=== PATIENT | female | born 1965 | race African-American/Black ===

== ENCOUNTER → 2016-04-01 | Outpatient (CLI) | payer BC ==
[2015-07-07 19:16] VITALS: BP 136/78
[~2016-04-01] MED LIST: GABA-586 PO; HYDR200T PO; LOSA1TAB12 PO; METF500T4 PO; NAPR500T3 PO; TRAM50TA PO
--- NOTE | 2016-04-01 10:01 | KCIC ---
Examination: MRI of the left knee without contrast. HISTORY History of left posterior knee pain. COMPARISON None TECHNIQUE Multiplanar, multisequence MR imaging of the left knee was performed without contrast FINDINGS The anterior cruciate ligament, posterior cruciate ligament appear intact. There is mild increased horizontal signal identified in the medial meniscus likely degeneration. The lateral meniscus appears intact. The medial collateral ligament is intact. The lateral collateral ligamentous complex including the fibular collateral ligament, biceps femoris tendon, popliteus tendon appear intact. The distal attachment of the iliotibial band appears intact. Moderate knee joint effusion is identified. The medial retinaculum, lateral retinaculum appear intact. Small subchondral cysts identified in the posterior tibia with surrounding trabecular edema likely degeneration. There is near complete cartilage loss identified in the patellofemoral compartment with underlying multiple subchondral cystic changes identified in the patella likely secondary to degeneration. There is fraying of cartilage identified medial, lateral compartments. Tiny popliteal cyst is identified. Minimal amount of edema identified surrounding the knee joint within the soft tissue. The visualized neurovascular bundle grossly appears unremarkable. Moderate joint space loss identified in the patellofemoral compartment. The extensor mechanism is intact. There is moderate joint space loss identified in the medial compartment. Mild joint space loss identified in lateral compartment. IMPRESSION - Moderate to severe degenerative changes identified in the patellofemoral compartment with multiple subchondral cystic changes the patella. There is near complete cartilage loss identified in the patella. Grade 3 chondromalacia patella. - Moderate degenerative changes identified in the medial compartment. Mild mild degenerative changes identified in the lateral compartment. Small subchondral cysts identified in the posterior tibia with surrounding trabecular edema likely degeneration. - Moderate knee joint effusion. Tiny popliteal cyst. - Mild increased horizontal signal identified in the medial meniscus likely due to degeneration. Electronically signed by: Donnie Cook (Apr 01, 2016 09:59:22)
== END | disposition home or self-care (01) ==
LOC: KCIC MRI 08:34
PROVIDERS: ATTEND Nurse Practitioner Gerontology
DX: M25.562 Pain in left knee (principal); M25.461 Effusion, right knee; M22.42 Chondromalacia patellae, left knee
CPT/HCPCS: 73721

== ENCOUNTER → 2016-05-13 | Outpatient (CLI) | payer BC ==
[2015-07-07 19:16] VITALS: BP 136/78
--- NOTE | 2016-05-13 15:42 | KCIC ---
Bilateral digital screening mammograms with CAD: HISTORY Routine screening. COMPARISON Comparison is made to previous studies dated 05/06/2015, 04/25/2015 and 04/21/2015. FINDINGS Breast density category A. The skin and nipples show no abnormalities. No abnormal lymph nodes are seen in the axilla. The breast parenchyma is predominately fatty. There are postop changes present from excisional biopsy at the 5 o'clock position posteriorly in the right breast. There are no new dominant masses, suspicious calcifications or architectural distortions. IMPRESSION Post excisional biopsy changes in the right breast. No evidence of malignancy. Recommend routine followup. This study was interpreted with the benefit of Computerized Aided Detection (CAD). Mammography is not 100% sensitive in detecting breast cancer. Therefore, a self breast exam and a clinical breast exam are very important. A negative mammogram does not negate a clinically suspicious finding and should not result in a delay in biopsying a clinically suspicious abnormality. BI-RADS category 2: Benign. This patient's information has been entered into a reminder system for the patient to be notified with the results of this examination and a target date for her next mammograms. Electronically signed by: Farheen Neves MD (May 13, 2016 15:40:59)
== END | disposition home or self-care (01) ==
LOC: KCIC MAMMO 07:53
PROVIDERS: ATTEND Internal Medicine
DX: Z12.31 Encounter for screening mammogram for malignant neoplasm of breast (principal)
CPT/HCPCS: G0202; 77067

== ENCOUNTER 2016-07-07 14:50 | Emergency (ER) | payer BC ==
[~2016-07-07] VITALS: Ht 162.6 cm; Wt 106.1 kg
--- NOTE | 2016-07-07 14:57 | PHYS DOC ---
Past Medical History Past Medical History: Arthritis, Fibromyalgia, Hypertension, Other Additional Past Medical Histor: CHRONIC KNEE PAIN Past Surgical History: Appendectomy Alcohol Use: None Drug Use: None Adult General HPI HPI Patient is a 51 year old female who presents with headache. She states she woke up around 3 AM because of her headache she describes it as a ache/bandlike around the top part of her head. She denies any nausea vomiting fevers chills no pain dysuria. She states his been 10 years since she's had a headache before. She thought she was going down some took some Vics vapor rub last night at 3 AM and states she still feels the same. She was able to work today and she states she noticed her blood pressure being elevated. On arrival it was 183 systolic. She states normally runs in the 140s. Review of Systems Review of Systems Constitutional: Denies fever or chills [] Eyes: Denies change in visual acuity, redness, or eye pain [] HENT: Denies nasal congestion or sore throat [] Respiratory: Denies cough or shortness of breath [] Cardiovascular: No additional information not addressed in HPI [] GI: Denies abdominal pain, nausea, vomiting, bloody stools or diarrhea [] : Denies dysuria or hematuria [] Musculoskeletal: Denies back pain or joint pain [] Integument: Denies rash or skin lesions [] Neurologic: Denies focal weakness or sensory changes, positive for headache [] Endocrine: Denies polyuria or polydipsia [] Current Medications Current Medications Current Medications Medications (Trade) Dose Ordered Sig/Bell Start Time Stop Time Status Last Admin Dose Admin Acetaminophen (Tylenol) 1,000 mg 1X ONCE 07/07/16 18:45 07/07/16 18:46 UNV Info (Do NOT chart on this entry -- for MONITORING) 1 each PRN DAILY PRN 07/07/16 16:45 07/09/16 16:44 Iohexol (Omnipaque 350 Mg/ml) 75 ml 1X ONCE 07/07/16 16:45 07/07/16 16:46 DC 07/07/16 17:31 75 ML Morphine Sulfate 2 mg PRN Q15MIN PRN 07/07/16 15:00 07/08/16 14:59 07/07/16 17:04 2 MG Allergies Allergies Allergies Coded Allergies Type Severity Reaction Last Updated Verified Penicillins Allergy Intermediate 05/06/15 Yes codeine Allergy Intermediate swelling 07/07/15 Yes Physical Exam Physical Exam Constitutional: Well developed, well nourished, no acute distress, non-toxic appearance. [] HENT: Normocephalic, atraumatic, bilateral external ears normal, oropharynx moist, no oral exudates, nose normal. [] Eyes: PERRLA, EOMI, conjunctiva normal, no discharge. [] Neck: Normal range of motion, no tenderness, supple, no stridor. [] Cardiovascular:Heart rate regular rhythm, no murmur [] Lungs & Thorax: Bilateral breath sounds clear to auscultation [] Abdomen: Bowel sounds normal, soft, no tenderness, no masses, no pulsatile masses. [] Skin: Warm, dry, no erythema, no rash. [] Back: No tenderness, no CVA tenderness. [] Extremities: No tenderness, no cyanosis, no clubbing, ROM intact, no edema. [] Neurologic: Alert and oriented X 3, normal motor function, normal sensory function, no focal deficits noted. [] Psychologic: Affect normal, judgement normal, mood normal. [] Current Patient Data Vital Signs Vital Signs Date Time Temp Pulse Resp B/P Pulse Ox O2 Delivery O2 Flow Rate FiO2 07/07/16 17:30 80 16 165/89 97 Room Air 07/07/16 14:50 97.6 97.6 Lab Values Laboratory Tests Test 07/07/16 15:30 White Blood Count 30.5x10^3/uL (4.0-11.0) H Red Blood Count 5.08x10^6/uL (3.50-5.40) Hemoglobin 14.4g/dL (12.0-15.5) Hematocrit 42.4% (36.0-47.0) Mean Corpuscular Volume 84fL (79-100) Mean Corpuscular Hemoglobin 28pg (25-35) Mean Corpuscular Hemoglobin Concent 34g/dL (31-37) Red Cell Distribution Width 13.3% (11.5-14.5) Platelet Count 286x10^3/uL (140-400) Neutrophils (%) (Auto) 90% (31-73) H Lymphocytes (%) (Auto) 5% (24-48) L Monocytes (%) (Auto) 4% (0-9) Eosinophils (%) (Auto) 0% (0-3) Basophils (%) (Auto) 0% (0-3) Neutrophils # (Auto) 27.5x10^3uL (1.8-7.7) H Lymphocytes # (Auto) 1.5x10^3/uL (1.0-4.8) Monocytes # (Auto) 1.3x10^3/uL (0.0-1.1) H Eosinophils # (Auto) 0.0x10^3/uL (0.0-0.7) Basophils # (Auto) 0.1x10^3/uL (0.0-0.2) Segmented Neutrophils % 88% (35-66) H Band Neutrophils % 1% (0-9) Lymphocytes % 8% (24-48) L Monocytes % 3% (0-10) Platelet Estimate Adequate (ADEQUATE) Prothrombin Time 13.3SEC (11.7-14.0) Prothrombin Time INR 1.1 (0.8-1.1) Urine Collection Type Unknown Urine Color Straw Urine Clarity Clear Urine pH 7.5 Urine Specific [place] <=1.005 Urine Protein Negativemg/dL (NEG-TRACE) Urine Glucose (UA) Negativemg/dL (NEG) Urine Ketones (Stick) Negativemg/dL (NEG) Urine Blood Negative (NEG) Urine Nitrite Negative (NEG) Urine Bilirubin Negative (NEG) Urine Urobilinogen Dipstick 0.2mg/dL (0.2 mg/dL) Urine Leukocyte Esterase Negative (NEG) Urine RBC 0/HPF (0-2) Urine WBC 0/HPF (0-4) Urine Squamous Epithelial Cells Mod/LPF Urine Bacteria Few/HPF (0-FEW) Sodium Level 141mmol/L (136-145) Potassium Level 3.5mmol/L (3.5-5.1) Chloride Level 103mmol/L (98-107) Carbon Dioxide Level 26mmol/L (21-32) Anion Gap 12 (6-14) Blood Urea Nitrogen 14mg/dL (7-20) Creatinine 0.8mg/dL (0.6-1.0) Estimated GFR (Cockcroft-Gault) 91.5 Glucose Level 111mg/dL (70-99) H Calcium Level 10.4mg/dL (8.5-10.1) H Magnesium Level 2.0mg/dL (1.8-2.4) Total Bilirubin 0.3mg/dL (0.2-1.0) Direct Bilirubin 0.1mg/dL (0.0-0.2) Aspartate Amino Transferase (AST) 18U/L (15-37) Alanine Aminotransferase (ALT) 30U/L (14-59) Alkaline Phosphatase 87U/L (46-116) Creatine Kinase 151U/L (26-192) Creatine Kinase MB (Mass) 1.3ng/mL (0.0-3.6) Creatine Kinase MB Relative Index 0.9% (0-4) Troponin I Quantitative < 0.017ng/mL (0.000-0.055) HK-Ksf-M-Type Natriuretic Peptide 147pg/mL (0-124) H Total Protein 8.5g/dL (6.4-8.2) H Albumin 4.5g/dL (3.4-5.0) Thyroid Stimulating Hormone (TSH) 0.437uIU/mL (0.358-3.74) Serum Test, Qualitative Negative (NEG) Laboratory Tests 07/07/16 15:30 Laboratory Tests 07/07/16 15:30 EKG EKG [] Radiology/Procedures Radiology/Procedures [facility] [id number] [place] [address] IMAGING REPORT Signed PATIENT: SLY SWEENEY ACCOUNT: [id number] : 1965 LOCATION: ER AGE: 51 SEX: F EXAM STATUS: REG ER ORD. PHYSICIAN: SAL MUNOZ MD REASON: headache PROCEDURE: CT ANGIOGRAPHY HEAD AND NECK Examination: CT angiography head and neck with IV contrast. HISTORY History of headache, hypertension. COMPARISON None available. TECHNIQUE Axial CT angiographic images of the head and neck was performed with IV contrast. Coronal and sagittal 3D MIP reformats were performed. Volumetric reformats of the carotid and vertebral arterial system were performed. Exposure: One or more of the following dose reduction technique were utilized for this examination: 1. Automated exposure control. 2.Adjustment of MA and /or KV according to patient size. 3. Use of iterative reconstruction technique. Findings: There is common origin of the left common carotid and right innominate artery. Mild atherosclerosis identified in the bilateral carotid bulbs. Examination somewhat limited due to mild motion artifact. No evidence of hemodynamically significant stenosis identified in the bilateral carotid arterial system. The anterior cerebral arteries, middle cerebral arteries are patent. The visualized vertebral arteries, basilar artery are patent. The visualized posterior cerebral arteries are patent. The right and left posterior communicating arteries are patent. No evidence of large aneurysmal changes identified. The apical lungs are clear. IMPRESSION 1.No evidence of hemodynamically significant stenosis or occlusion in the visualized carotid and vertebral arterial system.. Electronically signed by: Donnie Cook (Jul 07, 2016 18:10:15) DICTATED and SIGNED BY: DONNIE COOK MD DATE: 07/07/161809 CC: SAL MUNOZ MD; JONES RAYMOND MD ~ [id number] [place] [address] IMAGING REPORT Signed PATIENT: SLY SWEENEY ACCOUNT: [id number] : 1965 LOCATION: ER AGE: 51 SEX: F EXAM STATUS: REG ER ORD. PHYSICIAN: SAL MUNOZ MD REASON: headache PROCEDURE: CT HEAD WO CONTRAST CT of the head without contrast, 07/07/2016: History: Headache The ventricles are within normal limits in size. There is no shift of the midline structures. There is no evidence of acute intracranial hemorrhage or mass effect. IMPRESSION: The CT of the head without contrast reveals no significant abnormality. RS Compliance Statement: One or more of the following individualized dose reduction techniques were utilized for this examination: 1. Automated exposure control 2. Adjustment of the mA and/or kV according to patient size 3. Use of iterative reconstruction technique DICTATED and SIGNED BY: TATA PATTERSON MD DATE: 07/07/16 1415 CC: SAL MUNOZ MD; JONES RAYMOND MD ~ [id number] [place] [address] IMAGING REPORT Signed PATIENT: SLY SWEENEY ACCOUNT: [id number] : 1965 LOCATION: ER AGE: 51 SEX: F EXAM STATUS: REG ER ORD. PHYSICIAN: SAL MUNOZ MD REASON: htn PROCEDURE: PORTABLE CHEST 1V Portable chest, 07/07/2016: History: Hypertension, diabetes The heart is at the upper limits of normal in size. The pulmonary vascularity is normal. No pulmonary infiltrates are seen. There is no evidence of pleural fluid. IMPRESSION: No acute cardiopulmonary abnormality is detected. DICTATED and SIGNED BY: TATA PATTERSON MD DATE: 07/07/161616 CC: SAL MUNOZ MD; JONES RAYMOND MD ~ Impressions: Headache Leukocytosis Course & Med Decision Making Course & Med Decision Making Pertinent Labs and Imaging studies reviewed. (See chart for details) Labs showed an elevated white blood cell count. It's lymphocytic dominant. She doesn't have any bandemia, fevers, neck stiffness or any other signs of infection. CT scan of her head in addition to CT Angio of her head and neck also nonacute. Her headache has improved in the ER. Her blood pressure is slightly elevated at 160 systolic and she is on blood pressure medicines. I did speak with Dr. Lucero with heme/onc, who is okay with the patient being discharged and follow-up as an outpatient with him. Patient received Tylenol and feels better regarding her headache. She is being discharged home with return precautions for worsening headache, fevers, neck stiffness, other concerns return back to ER. She is in stable condition agreeable to plan. Dragon Disclaimer Dragon Disclaimer This electronic medical record was generated, in whole or in part, using a voice recognition dictation system. Departure Departure Impression: Primary Impression: Headache Additional Impression: Leukocytosis Disposition: 01 HOME, SELF-CARE Condition: STABLE Referrals: JONES RAYMOND MD (PCP) DOMINICK LUCERO MD Patient Instructions: General Headache Without Cause, Leukocytosis Additional Instructions: You have an elevated white blood cell count and will need to follow-up with Dr. Lucero. Please call his office and schedule follow-up appointment with him. The CAT scan of her head did not show any abnormalities. You can use Tylenol 1000 mg every 8 hours not to exceed 3000 mg in a 24-hour period. If your headache returns, he gets worse, you developed neck stiffness, fevers or you have other concerns please return back to emergency department. Problem Qualifiers Primary Impression: Headache Headache type: other headache syndrome Qualified Code: G44.89 - Other headache syndrome Additional Impression: Leukocytosis Leukocytosis type: lymphocytosis Qualified Code: D72.820 - Lymphocytosis ( symptomatic) SAL MUNOZ MD Jul 07, 2016 14:57
[2016-07-07 15:44] LABS: BASO # 0.1 x10^3/uL (0.0-0.2); BASO % 0 % (0-3); EOS % 0 % (0-3); HEMATOCRIT 42.4 % (36.0-47.0); HEMOGLOBIN 14.4 g/dL (12.0-15.5); LYMPH # 1.5 x10^3/uL (1.0-4.8); LYMPH % 5 % (24-48); MEAN CORPUSCULAR HEMOGLOBIN 28 pg (25-35); MEAN CORPUSCULAR HGB CONC 34 g/dL (31-37); MEAN CORPUSCULAR VOLUME 84 fL (79-100); MONO % 4 % (0-9); NEUT % 90 % (31-73); PLATELET COUNT 286 x10^3/uL (140-400); RED BLOOD COUNT 5.08 x10^6/uL (3.50-5.40); RED CELL DISTRIBUTION WIDTH 13.3 % (11.5-14.5); WHITE BLOOD COUNT 30.5 x10^3/uL (4.0-11.0)
[2016-07-07] MEDS: MORPHINE SULFATE 2 MG/ML DISP.SYRIN. IV/SQ PRN ×2 (15:44→17:04)
[2016-07-07 15:46] LABS: BILIRUBIN,URINE NEGATIVE (NEG); GLUCOSE,URINE NEGATIVE (NEG); NITRITE,URINE NEGATIVE (NEG); PH,URINE 7.5; PROTEIN,URINE NEGATIVE (NEG-TRACE); UROBILINOGEN,URINE 0.2 mg/dL (0.2 mg/dL)
[2016-07-07 15:52] LABS: INR 1.1 (0.8-1.1); PROTHROMBIN TIME PATIENT 13.3 SEC (11.7-14.0)
[2016-07-07 15:53] LABS: BACTERIA,URINE FEW /HPF (0-FEW); RBC,URINE 0 /HPF (0-2); SQUAMOUS EPITHELIAL CELL,UR MOD /LPF; WBC,URINE 0 /HPF (0-4)
[2016-07-07 16:03] LABS: NEG OBC SER NEG; POS OBC SER POS
[2016-07-07 16:05] LABS: CALCIUM 10.4 mg/dL (8.5-10.1); CREATININE 0.8 mg/dL (0.6-1.0); GFR 91.5; POTASSIUM 3.5 mmol/L (3.5-5.1)
[2016-07-07 16:13] LABS: ALBUMIN 4.5 g/dL (3.4-5.0); DIRECT BILIRUBIN 0.1 mg/dL (0.0-0.2); TOTAL BILIRUBIN 0.3 mg/dL (0.2-1.0); TOTAL PROTEIN 8.5 g/dL (6.4-8.2)
[2016-07-07 16:18] LABS: CKMB INDEX 0.9 % (0-4); CKMB MASS 1.3 ng/mL (0.0-3.6)
--- NOTE | 2016-07-07 16:20 | RAD ---
CT of the head without contrast, 07/07/2016: History: Headache The ventricles are within normal limits in size. There is no shift of the midline structures. There is no evidence of acute intracranial hemorrhage or mass effect. IMPRESSION: The CT of the head without contrast reveals no significant abnormality. PQRS Compliance Statement: One or more of the following individualized dose reduction techniques were utilized for this examination: 1. Automated exposure control 2. Adjustment of the mA and/or kV according to patient size 3. Use of iterative reconstruction technique
--- NOTE | 2016-07-07 16:21 | RAD ---
Portable chest, 07/07/2016: History: Hypertension, diabetes The heart is at the upper limits of normal in size. The pulmonary vascularity is normal. No pulmonary infiltrates are seen. There is no evidence of pleural fluid. IMPRESSION: No acute cardiopulmonary abnormality is detected.
[2016-07-07] MEDS ORDERED: IOHEXOL 350 MG/ML 100 ML VIAL. IV ONE (16:45)
[2016-07-07] MEDS ORDERED: CONTRAST GIVEN MC PRN (16:45)
[2016-07-07 16:54] LABS: PLT ESTIMATE ADEQUATE (ADEQUATE)
--- NOTE | 2016-07-07 18:11 | RAD ---
Examination: CT angiography head and neck with IV contrast. HISTORY History of headache, hypertension. COMPARISON None available. TECHNIQUE Axial CT angiographic images of the head and neck was performed with IV contrast. Coronal and sagittal 3D MIP reformats were performed. Volumetric reformats of the carotid and vertebral arterial system were performed. Exposure: One or more of the following dose reduction technique were utilized for this examination: 1. Automated exposure control. 2.Adjustment of MA and /or KV according to patient size. 3. Use of iterative reconstruction technique. Findings: There is common origin of the left common carotid and right innominate artery. Mild atherosclerosis identified in the bilateral carotid bulbs. Examination somewhat limited due to mild motion artifact. No evidence of hemodynamically significant stenosis identified in the bilateral carotid arterial system. The anterior cerebral arteries, middle cerebral arteries are patent. The visualized vertebral arteries, basilar artery are patent. The visualized posterior cerebral arteries are patent. The right and left posterior communicating arteries are patent. No evidence of large aneurysmal changes identified. The apical lungs are clear. IMPRESSION 1.No evidence of hemodynamically significant stenosis or occlusion in the visualized carotid and vertebral arterial system.. Electronically signed by: Donnie Cook (Jul 07, 2016 18:10:15)
[2016-07-07 18:30] VITALS: BP 164/90
[2016-07-07] MEDS ORDERED: ACETAMINOPHEN 500 MG TABLET PO ONE (18:45)
== END 2016-07-07 18:52 | disposition home or self-care (01) ==
LOC: ER 14:50
DX: R51 Headache (principal); D72.820 Lymphocytosis (symptomatic); I10 Essential (primary) hypertension; M79.7 Fibromyalgia; E11.9 Type 2 diabetes mellitus without complications; M19.90 Unspecified osteoarthritis, unspecified site; G89.29 Other chronic pain; Z88.0 Allergy status to penicillin; Z88.5 Allergy status to narcotic agent
CPT/HCPCS: 36415; 70450; 70496; 70498; 71010; 80048; 80076; 81001; 82553; 83735; 83880; 84443; 84484; 84703; 85007; 85027; 85610; 96374; 96376; 99285; J2270; Q9967

== ENCOUNTER 2016-11-27 19:59 | Emergency (ER) | payer BC ==
[2016-11-27] MEDS ORDERED: ONDA4TAB10 SL (20:26)
--- NOTE | 2016-11-27 20:26 | PHYS DOC ---
Past Medical History Past Medical History: Arthritis, Diabetes-Type II, Fibromyalgia, Hypertension, Other Additional Past Medical Histor: CHRONIC KNEE PAIN Past Surgical History: Appendectomy Alcohol Use: None Drug Use: None Adult General Chief Complaint Chief Complaint: HYPERTENSION HPI HPI Patient is a 51 year old female who presents with ear pain and headache. 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 She started to feel nauseated with it but no vomiting. The pain is focused right around the left ear. No drainage. Her blood pressure was up at the [employer] it is improved now. She does have high blood pressure. Denies feeling ill recently; no fever or chills, no sore throat, no chest pain or difficulty breathing, no diarrhea, no urinary complaints, no numbness or tingling or weakness of her arms or legs. Her last evaluation here was in June 2016 for which she was seen for headache and elevated blood pressure. CT head was negative as well as a CT angio head and neck that was unremarkable. Review of Systems Review of Systems Constitutional: Denies fever or chills Eyes: Denies change in visual acuity, redness, or eye pain HENT: Denies nasal congestion or sore throat ; POS left ear pain. No drainage. Respiratory: Denies cough or shortness of breath Cardiovascular: No chest pain. GI: Denies abdominal pain, POS nausea, NO vomiting, bloody stools or diarrhea : Denies dysuria or hematuria Musculoskeletal: Denies back pain or joint pain Integument: Denies rash or skin lesions Neurologic: POS headache, No focal weakness or sensory changes; no visual changes. Allergies Allergies Allergies Coded Allergies Type Severity Reaction Last Updated Verified Penicillins Allergy Intermediate 05/06/15 Yes codeine Allergy Intermediate swelling 07/07/15 Yes Physical Exam Physical Exam Constitutional: Well developed, well nourished, no acute distress, non-toxic appearance. HENT: Normocephalic, atraumatic, TMs clear without erythema ; bilateral external ears normal, oropharynx moist, no oral exudates, nose normal. Lightly tender over the left TMJ and preauricular area. No lymphadenopathy noted. No swelling of the parotid gland. Eyes: PERRLA, EOMI, conjunctiva normal, no discharge. Neck: Normal range of motion, no tenderness, supple, no stridor. Cardiovascular:Heart rate regular rhythm, no murmur Lungs & Thorax: Bilateral breath sounds clear to auscultation Abdomen: Bowel sounds normal, soft, no tenderness, no masses, no pulsatile masses. Skin: Warm, dry, no erythema, no rash. Back: No tenderness, no CVA tenderness. Extremities: No tenderness, no cyanosis, no clubbing, ROM intact, no edema. Neurologic: Alert and oriented X 3, normal motor function, normal sensory function, no focal deficits noted. Course & Med Decision Making Course & Med Decision Making Evaluated patient. She has no evidence of acute neurologic compromise at this time. Had neuroimaging recently performed. BP already down to 151/87 (in June presented to ED with BP 165/85). Has a pharmacy delivery driver. Will dose with IM Morphine and Phenergan. Informed the patient if her headache resolves but she still has persistent left ear pain she is to have it reevaluated. Does not meet any criteria for antibiotics at this time. I have spoken with the patient and/or caregivers. I have explained the patient' s condition, diagnosis and treatment plan based on the information available to me at this time. I have answered the patient's and/or caregiver's questions and addressed any concerns. The patient and/or caregivers have as good an understanding of the patient's diagnosis, condition and treatment plan as can be expected at this point. The patient's condition is stable and appropriate for discharge from the emergency department. The patient will pursue further outpatient evaluation with the primary care physician or other designated or consulting physician as outlined in the discharge instructions. The patient and/or caregivers are agreeable to this plan of care and follow-up instructions have been explained in detail. The patient and/or caregivers have received these instructions in written format and have expressed an understanding of the discharge instructions. The patient and/or caregivers are aware that any significant change in condition or worsening of symptoms should prompt an immediate return to this or the closest emergency department or a call to 911. [place] Disclaimer Dragon Disclaimer This electronic medical record was generated, in whole or in part, using a voice recognition dictation system. Departure Departure Impression: Primary Impression: Headache Disposition: HOME, SELF-CARE Condition: STABLE Referrals: JONES RAYMOND MD (PCP) Patient Instructions: General Headache Without Cause Additional Instructions: If your ear pain persists after headache resolves, please have your ear rechecked. If YOU develop any ear drainage that needs to be rechecked as well. Scripts Ondansetron (ZOFRAN ODT) 4 Mg Tab.rapdis 1 TAB SL Q8HRS, #8 TAB Prov: GREG YOO MD 11/27/16 Problem Qualifiers Primary Impression: Headache Headache type: tension-type Headache chronicity pattern: acute headache Intractability: not intractable Qualified Codes: G44.209 - Tension-type headache, unspecified, not intractable GREG YOO MD Nov 27, 2016 20:26
[2016-11-27] MEDS ORDERED: PROMETHAZINE IM 25 MG/ML VIAL IM ONE (20:30)
[2016-11-27] MEDS ORDERED: MORPHINE SULFATE 2 MG/ML DISP.SYRIN. IM ONE (20:30)
[2016-11-27 20:40] VITALS: BP 150/89
== END 2016-11-27 20:49 | disposition home or self-care (01) ==
LOC: ER 19:59
DX: G44.209 Tension-type headache, unspecified, not intractable (principal); H92.02 Otalgia, left ear; E11.9 Type 2 diabetes mellitus without complications; M79.7 Fibromyalgia; I10 Essential (primary) hypertension; G89.29 Other chronic pain; M19.90 Unspecified osteoarthritis, unspecified site; Z88.0 Allergy status to penicillin; Z88.5 Allergy status to narcotic agent
CPT/HCPCS: 96372; 99284; J2270; J2550

== ENCOUNTER → 2017-06-30 | Outpatient (CLI) | payer BC | END | disposition home or self-care (01) | LOC: KCIC MAMMO 07:54 | DX: Z12.31 Encounter for screening mammogram for malignant neoplasm of breast (principal); I10 Essential (primary) hypertension; E11.9 Type 2 diabetes mellitus without complications; E78.5 Hyperlipidemia, unspecified | CPT/HCPCS: 77067 ==

== ENCOUNTER → 2017-12-13 | Outpatient (CLI) | payer BC ==
[~2017-12-13] MED LIST changes: -HYDR200T PO; +HYDR200T71 PO; +METF500T16 PO; -METF500T4 PO; +NAPR-514 PO; -NAPR500T3 PO; +ONDA4TAB10 SL
--- NOTE | 2017-12-13 15:32 | KCIC ---
EXAM: Left foot and ankle, 3 views. HISTORY: Pain and swelling. COMPARISON: None. FINDINGS: 3 views of left foot and ankle are obtained. There is no fracture, dislocation or subluxation. No osteochondral lesion is seen. There is slight enthesopathy at the Achilles tendon insertion. There is diffuse ankle soft tissue swelling. IMPRESSION: 1. Left ankle soft tissue swelling. 2. No acute osseous finding. Electronically signed by: Nora Carter MD (12/13/2017 3:28 PM) [facility]
--- NOTE | 2017-12-13 15:32 | KCIC ---
EXAM: Left foot and ankle, 3 views. HISTORY: Pain and swelling. COMPARISON: None. FINDINGS: 3 views of left foot and ankle are obtained. There is no fracture, dislocation or subluxation. No osteochondral lesion is seen. There is slight enthesopathy at the Achilles tendon insertion. There is diffuse ankle soft tissue swelling. IMPRESSION: 1. Left ankle soft tissue swelling. 2. No acute osseous finding. Electronically signed by: Nora Carter MD (12/13/2017 3:28 PM) [facility]
== END | disposition home or self-care (01) ==
LOC: KCIC 14:58
PROVIDERS: ATTEND Internal Medicine
DX: M76.62 Achilles tendinitis, left leg (principal); R22.42 Localized swelling, mass and lump, left lower limb; I10 Essential (primary) hypertension; E11.9 Type 2 diabetes mellitus without complications; E78.5 Hyperlipidemia, unspecified; Z90.49 Acquired absence of other specified parts of digestive tract; Z88.0 Allergy status to penicillin; Z88.5 Allergy status to narcotic agent; Z88.6 Allergy status to analgesic agent
CPT/HCPCS: 73610; 73630

== ENCOUNTER → 2018-07-25 | Outpatient (CLI) | payer BC ==
[~2018-07-25] MED LIST changes: -GABA-586 PO; +GABA300C18 PO
--- NOTE | 2018-07-25 10:31 | RAD ---
DATE: 07/25/2018 EXAM: MAMMO KERVIN SCREENING BILATERAL HISTORY: Benign biopsy of the right breast in 2015. Routine screening. COMPARISON: 06/30/2017, 05/13/2016 mammographic exams This study was interpreted with the benefit of Computerized Aided Detection (CAD). Breast Density: SCATTERED The breast parenchyma shows scattered fibroglandular densities. Breast parenchyma level B. FINDINGS: Asymmetry involving the right posterior inner CC view probably related to previous biopsy similar prior exams. Small asymmetry of the right outer breast is present approximately 11.4 cm deep from the nipple. This measures up to 1.3 cm diameter. It is somewhat more evident than on the prior exam. Multiple very small masses involving the left breast are present and likely benign. Some of these are seen on the prior exams. IMPRESSION: Asymmetry of the right outer breast. This may represent a cyst. Spot compression recommended. Ultrasound may be needed. BI-RADS CATEGORY: 0 INCOMPLETE: NEEDS ADDITIONAL IMAGING EVALUATION AND/OR PRIOR MAMMOGRAMS FOR COMPARISON. RECOMMENDED FOLLOW-UP: ADD ADDITIONAL IMAGING PQRS compliance statement: Patient information was entered into a reminder system with a target due date pending additional images for the next mammogram. Mammography is a sensitive method for finding small breast cancers, but it does not detect them all and is not a substitute for careful clinical examination. A negative mammogram does not negate a clinically suspicious finding and should not result in delay in biopsying a clinically suspicious abnormality. "Our facility is accredited by the [employer] Mammography Program."
== END | disposition home or self-care (01) ==
LOC: MAMMO 07:58
PROVIDERS: ATTEND Internal Medicine
DX: Z12.31 Encounter for screening mammogram for malignant neoplasm of breast (principal); N64.89 Other specified disorders of breast
CPT/HCPCS: 77063; 77067

== ENCOUNTER → 2018-07-26 | Outpatient (CLI) | payer BC ==
--- NOTE | 2018-07-26 14:27 | RAD ---
DATE: 07/26/2018 EXAM: DIGITAL DIAGNOSTIC RT, BREAST RIGHT HISTORY: Abnormal screening exam COMPARISON: 07/25/2018 This study was interpreted with the benefit of Computerized Aided Detection (CAD). Breast Density: SCATTERED The breast parenchyma shows scattered fibroglandular densities. Breast parenchyma level B. FINDINGS: Additional views of the right breast confirm the presence of an elongated, lobulated nodule at the 11:00 location in the right breast. It measures approximately 14 mm in length. No microcalcifications are seen. Right breast ultrasound, 07/25/2018: A targeted ultrasound exam of the upper outer quadrant of the right breast was performed. At the 11:00 location approximately 9 cm from the nipple there is a complex elongated process corresponding to the mammographic finding. It measures approximately 2.5 x 13 mm as best seen in the radial plane. Its configuration suggests a ductal origin. There are low level internal echoes. There is no posterior acoustic enhancement or shadowing. This may represent a dilated segment of duct with internal debris, however, intraductal malignancy cannot be excluded. Ultrasound-guided biopsy is suggested for further evaluation. IMPRESSION: Suspicious right breast nodule as described above. Ultrasound-guided biopsy is suggested for further evaluation. Note: The findings were discussed with the patient of the time of the exam and she understands the recommendation for biopsy. She will follow up with the ordering physician. BI-RADS CATEGORY: 4 SUSPICIOUS ABNORMALITY- BIOPSY SHOULD BE CONSIDERED RECOMMENDED FOLLOW-UP: BIO BIOPSY RECOMMENDED PQRS compliance statement: Patient information was entered into a reminder system with a target due date for the next mammogram. Mammography is a sensitive method for finding small breast cancers, but it does not detect them all and is not a substitute for careful clinical examination. A negative mammogram does not negate a clinically suspicious finding and should not result in delay in biopsying a clinically suspicious abnormality. "Our facility is accredited by the [employer] Mammography Program."
== END | disposition home or self-care (01) ==
LOC: MAMMO 12:22
PROVIDERS: ATTEND Internal Medicine
DX: R92.2 Inconclusive mammogram (principal)
CPT/HCPCS: 76641; 77065

== ENCOUNTER 2018-08-23 07:36 | Day surgery (SDC) | payer BC ==
[~2018-08-23] VITALS: Ht 162.6 cm; Wt 107.5 kg
--- NOTE | 2018-08-23 06:29 | PREOP HP ---
DATE OF SERVICE: HISTORY OF PRESENT ILLNESS: The patient comes in after having a mammogram and sonogram, which shows a suspicious lesion of the right breast. She has had breast biopsy before at the inferior portion of the right breast, which was benign. Now, she has a new lesion which they think is suspicious and warrants biopsy. PAST MEDICAL HISTORY: Shows that: 1. She has had a right breast biopsy about 3-4 years ago for benign disease. 2. She has had an appendectomy as a child. 3. She has had tonsillectomy as a child. 4. Does have hypertension for which she takes medicine. She has no other diseases for which she takes medication. ALLERGIES: She does have allergy to PENICILLIN. FAMILY HISTORY: Noncontributory. SOCIAL HISTORY: Shows that she does not smoke, drink or use illicit drugs. REVIEW OF SYSTEMS: Basically negative. She has no real difficulties. Does have breast pain bilaterally, mostly on the right upper outer quadrant but no redness, erythema, just pain. PHYSICAL EXAMINATION: GENERAL: Shows an alert female in no acute distress. HEAD, EYES, EARS, NOSE, AND THROAT: Grossly normal. CHEST: Clear bilaterally to auscultation. HEART: Had no murmurs, heaves, friction rubs or thrills and had a rate estimated to be 72 beats per minute and it was regular. BREASTS: Examination of both axillary areas was negative and both breasts, no masses could be seen. There was no nipple discharge or skin retraction, only the small, very faint scar inferior portion of the right breast with excellent cosmetic result. No other abnormalities of the breasts. IMPRESSION: 1. Mass, right breast. 1. 2. Diabetes. RENU GUERRA MD DR: CHRIS/jordy JOB#: [id number] / [id number]
[~2018-08-23 07:36] MED LIST changes: +CLINDAMYCIN 900MG PREMIX 50 ML IV PRN; +IV RINGERS,LACTATED 1000ML 1,000 ML IV SCH; +ONDANSETRON PF 4 MG/2 ML VIAL. IV PRN; +PROCHLORPERAZINE 10 MG/2 ML VIAL. IV PRN; +fentaNYL PF VIAL 100 MCG/2 ML VIAL IV PRN
[2018-08-23] MEDS ORDERED: METHYLENE BLUE 1% 10 ML VIAL. IJ ONE ×2 (07:45→08:15)
[2018-08-23] MEDS ORDERED: ALBU2.5V8 INH (07:57)
[2018-08-23 08:35] LABS: BASO # 0.1 x10^3/uL (0.0-0.2); BASO % 1 % (0-3); EOS # 0.6 x10^3/uL (0.0-0.7); EOS % 7 % (0-3); HEMATOCRIT 40.1 % (36.0-47.0); HEMOGLOBIN 13.5 g/dL (12.0-15.5); LYMPH # 2.6 x10^3/uL (1.0-4.8); LYMPH % 29 % (24-48); MEAN CORPUSCULAR HEMOGLOBIN 29 pg (25-35); MEAN CORPUSCULAR HGB CONC 34 g/dL (31-37); MEAN CORPUSCULAR VOLUME 86 fL (79-100); MONO # 0.8 x10^3/uL (0.0-1.1); MONO % 8 % (0-9); NEUT % 55 % (31-73); PLATELET COUNT 283 x10^3/uL (140-400); RED BLOOD COUNT 4.69 x10^6/uL (3.50-5.40); RED CELL DISTRIBUTION WIDTH 13.6 % (11.5-14.5); WHITE BLOOD COUNT 9.1 x10^3/uL (4.0-11.0)
[2018-08-23 08:36] LABS: CALCIUM 9.3 mg/dL (8.5-10.1); CREATININE 0.9 mg/dL (0.6-1.0); GFR 79.3; POTASSIUM 3.3 mmol/L (3.5-5.1)
[2018-08-23 08:42] LABS: ALBUMIN 3.9 g/dL (3.4-5.0); ALBUMIN/GLOBULIN RATIO 1.1 (1.0-1.7); TOTAL BILIRUBIN 0.4 mg/dL (0.2-1.0); TOTAL PROTEIN 7.5 g/dL (6.4-8.2)
[2018-08-23 08:53] LABS: PROTHROMBIN TIME PATIENT 12.9 SEC (11.7-14.0)
[2018-08-23] MEDS ORDERED: fentaNYL PF VIAL 100 MCG/2 ML VIAL ONE (08:54)
[2018-08-23] MEDS ORDERED: LIDOCAINE 2% PF 5 ML VIAL. ONE (08:54)
[2018-08-23] MEDS ORDERED: PROPOFOL 20 ML IV ONE (08:54)
--- NOTE | 2018-08-23 09:28 | RAD ---
Ultrasound-guided right breast needle localization, 08/23/2018: HISTORY: Suspicious breast density Previous imaging demonstrated an elongated hypoechoic suspicious process at the 11:00 location. Under local anesthesia, aseptic conditions and sonographic guidance a needle was passed through this region via a superior approach. A small amount methylene blue was injected at the deep extent of the needle as requested by Dr. Beal. The modified Kopans retention wire was then passed through the needle with the needle removed. Hemostasis was obtained. Two-view postprocedural digital mammograms were then obtained to document position of the localization wire. The mammographic area of suspicion is partially obscured by post localization changes, but lies at the level of the hook and distal end of the thickened portion of the retention wire approximately 5-6 cm deep to the skin entry site of the wire. The patient tolerated the procedure well and was sent to surgery in good condition.
[2018-08-23] MEDS ORDERED: IPRATRPIUM/ALBUTEROL 0.5/2.5MG 3 ML NEBU. NEB ONE (10:00)
[2018-08-23] MEDS ORDERED: SEVOFLURANE 61 TO 120 MINUTES. IH ONE (10:41)
[2018-08-23] MEDS ORDERED: DEXAMETHASONE SOD PHOS 4 MG/ML VIAL ONE (10:41)
[2018-08-23] MEDS ORDERED: ONDANSETRON PF 4 MG/2 ML VIAL. ONE (10:52)
[2018-08-23] MEDS ORDERED: FAMOTIDINE 20 MG/2 ML VIAL ONE (10:53)
--- NOTE | 2018-08-23 11:21 | RAD ---
Right specimen mammogram, 08/23/2018: HISTORY: Suspicious breast nodule A single digital mammogram of the surgical specimen from the right breast was obtained. The modified Kopans retention wire is present within the specimen. There is a lobulated nodule at the 8/E-G level in the specimen container. This probably corresponds to the localized density, however, that cannot be stated with certainty.
--- NOTE | 2018-08-23 11:38 | PDOC ---
SURGICAL PROGRESS NOTE Subjective No change in dictated H&P. Vital Signs Vital Signs Date Time Temp Pulse Resp B/P (MAP) Pulse Ox O2 Delivery O2 Flow Rate FiO2 08/23/18 10:02 98 Room Air 08/23/18 08:03 97.8 78 18 138/74 97.8 Labs Laboratory Tests Test 08/23/18 08:02 White Blood Count 9.1 x10^3/uL (4.0-11.0) Red Blood Count 4.69 x10^6/uL (3.50-5.40) Hemoglobin 13.5 g/dL (12.0-15.5) Hematocrit 40.1 % (36.0-47.0) Mean Corpuscular Volume 86 fL (79-100) Mean Corpuscular Hemoglobin 29 pg (25-35) Mean Corpuscular Hemoglobin Concent 34 g/dL (31-37) Red Cell Distribution Width 13.6 % (11.5-14.5) Platelet Count 283 x10^3/uL (140-400) Neutrophils (%) (Auto) 55 % (31-73) Lymphocytes (%) (Auto) 29 % (24-48) Monocytes (%) (Auto) 8 % (0-9) Eosinophils (%) (Auto) 7 % (0-3) Basophils (%) (Auto) 1 % (0-3) Neutrophils # (Auto) 5.0 x10^3uL (1.8-7.7) Lymphocytes # (Auto) 2.6 x10^3/uL (1.0-4.8) Monocytes # (Auto) 0.8 x10^3/uL (0.0-1.1) Eosinophils # (Auto) 0.6 x10^3/uL (0.0-0.7) Basophils # (Auto) 0.1 x10^3/uL (0.0-0.2) Prothrombin Time 12.9 SEC (11.7-14.0) Prothromb Time International Ratio 1.0 (0.8-1.1) Sodium Level 141 mmol/L (136-145) Potassium Level 3.3 mmol/L (3.5-5.1) Chloride Level 102 mmol/L (98-107) Carbon Dioxide Level 29 mmol/L (21-32) Anion Gap 10 (6-14) Blood Urea Nitrogen 15 mg/dL (7-20) Creatinine 0.9 mg/dL (0.6-1.0) Estimated GFR (Cockcroft-Gault) 79.3 BUN/Creatinine Ratio 17 (6-20) Glucose Level 114 mg/dL (70-99) Calcium Level 9.3 mg/dL (8.5-10.1) Total Bilirubin 0.4 mg/dL (0.2-1.0) Aspartate Amino Transf (AST/SGOT) 19 U/L (15-37) Alanine Aminotransferase (ALT/SGPT) 28 U/L (14-59) Alkaline Phosphatase 89 U/L (46-116) Total Protein 7.5 g/dL (6.4-8.2) Albumin 3.9 g/dL (3.4-5.0) Albumin/Globulin Ratio 1.1 (1.0-1.7) Laboratory Tests Test 08/23/18 08:02 White Blood Count 9.1 x10^3/uL (4.0-11.0) Red Blood Count 4.69 x10^6/uL (3.50-5.40) Hemoglobin 13.5 g/dL (12.0-15.5) Hematocrit 40.1 % (36.0-47.0) Mean Corpuscular Volume 86 fL (79-100) Mean Corpuscular Hemoglobin 29 pg (25-35) Mean Corpuscular Hemoglobin Concent 34 g/dL (31-37) Red Cell Distribution Width 13.6 % (11.5-14.5) Platelet Count 283 x10^3/uL (140-400) Neutrophils (%) (Auto) 55 % (31-73) Lymphocytes (%) (Auto) 29 % (24-48) Monocytes (%) (Auto) 8 % (0-9) Eosinophils (%) (Auto) 7 % (0-3) Basophils (%) (Auto) 1 % (0-3) Neutrophils # (Auto) 5.0 x10^3uL (1.8-7.7) Lymphocytes # (Auto) 2.6 x10^3/uL (1.0-4.8) Monocytes # (Auto) 0.8 x10^3/uL (0.0-1.1) Eosinophils # (Auto) 0.6 x10^3/uL (0.0-0.7) Basophils # (Auto) 0.1 x10^3/uL (0.0-0.2) Prothrombin Time 12.9 SEC (11.7-14.0) Prothromb Time International Ratio 1.0 (0.8-1.1) Sodium Level 141 mmol/L (136-145) Potassium Level 3.3 mmol/L (3.5-5.1) Chloride Level 102 mmol/L (98-107) Carbon Dioxide Level 29 mmol/L (21-32) Anion Gap 10 (6-14) Blood Urea Nitrogen 15 mg/dL (7-20) Creatinine 0.9 mg/dL (0.6-1.0) Estimated GFR (Cockcroft-Gault) 79.3 BUN/Creatinine Ratio 17 (6-20) Glucose Level 114 mg/dL (70-99) Calcium Level 9.3 mg/dL (8.5-10.1) Total Bilirubin 0.4 mg/dL (0.2-1.0) Aspartate Amino Transf (AST/SGOT) 19 U/L (15-37) Alanine Aminotransferase (ALT/SGPT) 28 U/L (14-59) Alkaline Phosphatase 89 U/L (46-116) Total Protein 7.5 g/dL (6.4-8.2) Albumin 3.9 g/dL (3.4-5.0) Albumin/Globulin Ratio 1.1 (1.0-1.7) RENU GUERRA MD Aug 23, 2018 11:38
--- NOTE | 2018-08-23 11:41 | PDOC ---
SURGICAL PROGRESS NOTE Subjective Op NOte: surgeon................................................mathews Pre op diag...........................................mass right brest Post op diag.........................................mass right breast Anesthesia...........................................general Procedure............................................exc mass right breast via needle localization Blood loss...........................................3cc Fluids..................................................see anesthesia sheet Drains..................................................none Condition.............................................satisfactory Vital Signs Vital Signs Date Time Temp Pulse Resp B/P (MAP) Pulse Ox O2 Delivery O2 Flow Rate FiO2 08/23/18 10:02 98 Room Air 08/23/18 08:03 97.8 78 18 138/74 97.8 Labs Laboratory Tests Test 08/23/18 08:02 White Blood Count 9.1 x10^3/uL (4.0-11.0) Red Blood Count 4.69 x10^6/uL (3.50-5.40) Hemoglobin 13.5 g/dL (12.0-15.5) Hematocrit 40.1 % (36.0-47.0) Mean Corpuscular Volume 86 fL (79-100) Mean Corpuscular Hemoglobin 29 pg (25-35) Mean Corpuscular Hemoglobin Concent 34 g/dL (31-37) Red Cell Distribution Width 13.6 % (11.5-14.5) Platelet Count 283 x10^3/uL (140-400) Neutrophils (%) (Auto) 55 % (31-73) Lymphocytes (%) (Auto) 29 % (24-48) Monocytes (%) (Auto) 8 % (0-9) Eosinophils (%) (Auto) 7 % (0-3) Basophils (%) (Auto) 1 % (0-3) Neutrophils # (Auto) 5.0 x10^3uL (1.8-7.7) Lymphocytes # (Auto) 2.6 x10^3/uL (1.0-4.8) Monocytes # (Auto) 0.8 x10^3/uL (0.0-1.1) Eosinophils # (Auto) 0.6 x10^3/uL (0.0-0.7) Basophils # (Auto) 0.1 x10^3/uL (0.0-0.2) Prothrombin Time 12.9 SEC (11.7-14.0) Prothromb Time International Ratio 1.0 (0.8-1.1) Sodium Level 141 mmol/L (136-145) Potassium Level 3.3 mmol/L (3.5-5.1) Chloride Level 102 mmol/L (98-107) Carbon Dioxide Level 29 mmol/L (21-32) Anion Gap 10 (6-14) Blood Urea Nitrogen 15 mg/dL (7-20) Creatinine 0.9 mg/dL (0.6-1.0) Estimated GFR (Cockcroft-Gault) 79.3 BUN/Creatinine Ratio 17 (6-20) Glucose Level 114 mg/dL (70-99) Calcium Level 9.3 mg/dL (8.5-10.1) Total Bilirubin 0.4 mg/dL (0.2-1.0) Aspartate Amino Transf (AST/SGOT) 19 U/L (15-37) Alanine Aminotransferase (ALT/SGPT) 28 U/L (14-59) Alkaline Phosphatase 89 U/L (46-116) Total Protein 7.5 g/dL (6.4-8.2) Albumin 3.9 g/dL (3.4-5.0) Albumin/Globulin Ratio 1.1 (1.0-1.7) Laboratory Tests Test 08/23/18 08:02 White Blood Count 9.1 x10^3/uL (4.0-11.0) Red Blood Count 4.69 x10^6/uL (3.50-5.40) Hemoglobin 13.5 g/dL (12.0-15.5) Hematocrit 40.1 % (36.0-47.0) Mean Corpuscular Volume 86 fL (79-100) Mean Corpuscular Hemoglobin 29 pg (25-35) Mean Corpuscular Hemoglobin Concent 34 g/dL (31-37) Red Cell Distribution Width 13.6 % (11.5-14.5) Platelet Count 283 x10^3/uL (140-400) Neutrophils (%) (Auto) 55 % (31-73) Lymphocytes (%) (Auto) 29 % (24-48) Monocytes (%) (Auto) 8 % (0-9) Eosinophils (%) (Auto) 7 % (0-3) Basophils (%) (Auto) 1 % (0-3) Neutrophils # (Auto) 5.0 x10^3uL (1.8-7.7) Lymphocytes # (Auto) 2.6 x10^3/uL (1.0-4.8) Monocytes # (Auto) 0.8 x10^3/uL (0.0-1.1) Eosinophils # (Auto) 0.6 x10^3/uL (0.0-0.7) Basophils # (Auto) 0.1 x10^3/uL (0.0-0.2) Prothrombin Time 12.9 SEC (11.7-14.0) Prothromb Time International Ratio 1.0 (0.8-1.1) Sodium Level 141 mmol/L (136-145) Potassium Level 3.3 mmol/L (3.5-5.1) Chloride Level 102 mmol/L (98-107) Carbon Dioxide Level 29 mmol/L (21-32) Anion Gap 10 (6-14) Blood Urea Nitrogen 15 mg/dL (7-20) Creatinine 0.9 mg/dL (0.6-1.0) Estimated GFR (Cockcroft-Gault) 79.3 BUN/Creatinine Ratio 17 (6-20) Glucose Level 114 mg/dL (70-99) Calcium Level 9.3 mg/dL (8.5-10.1) Total Bilirubin 0.4 mg/dL (0.2-1.0) Aspartate Amino Transf (AST/SGOT) 19 U/L (15-37) Alanine Aminotransferase (ALT/SGPT) 28 U/L (14-59) Alkaline Phosphatase 89 U/L (46-116) Total Protein 7.5 g/dL (6.4-8.2) Albumin 3.9 g/dL (3.4-5.0) Albumin/Globulin Ratio 1.1 (1.0-1.7) RENU MATHEWS MD Aug 23, 2018 11:41
[2018-08-23] MEDS ORDERED: OXYC1TAB15 PO (11:57)
[2018-08-23 12:30] VITALS: BP 128/68
[2018-08-23] MEDS ORDERED: oxyCODONE/APAP 5/325 1 TAB TABLET PO ONE (12:45)
--- NOTE | 2018-08-24 09:43 | OP ---
DATE OF SURGERY: SURGEON: Kadeem Guerra MD PREOPERATIVE DIAGNOSIS: Suspicious mass, right upper outer quadrant breast. POSTOPERATIVE DIAGNOSIS: Suspicious mass, right upper outer quadrant breast. ANESTHESIA: General. PROCEDURE: Excision of breast mass, right upper outer quadrant, right breast via needle localization. TECHNIQUE: Under general anesthesia, the patient had been properly prepped and draped in a routine fashion. I reviewed the films with the radiologist and got the exact location of the wire and the guidewire going through the mass and where the methylene blue was. As such, we made an incision in the upper outer quadrant of the right breast following the skin lines somewhat inferior to the entrance of the guidewire. We made this about inch and a half in length and carried it down through the skin with a 15 blade. We then went into the subcutaneous using cautery down to the guidewire. We delivered the guidewire into the incision from its puncture site and then using retractors, Shaan's and then Christensen's, retracted away the skin and the subcutaneous tissues as we grasped the guidewire and the tissue beneath it. We then went well around the guidewire using cautery and some sharp dissection with Metzenbaum scissors. One or two bleeders were cauterized and we slowly clamped the guidewire slowly down and went down around the guidewire including the methylene blue. We then sent it to x-ray and the radiologist, Dr. Burrows still thought that the lesion in question was in the specimen. As such, we proceeded to close the wound after the bleeding had been controlled and we used one 3-0 Vicryl deep in the breast and then 4-0 Vicryl more superficially interrupted in the subQ. The skin was closed using interrupted 5-0 nylon. The procedure was then terminated and a sterile dressing was applied. The blood loss was probably 3 mL. FLUIDS GIVEN: Can be obtained from the anesthesia sheet. DRAINS: No drains were used. CONDITION OF THE PATIENT: Satisfactory as she is returned to the recovery room. KADEEM GUERRA MD DR: CHRIS/jordy JOB#: [id number] / [id number] Saman Andrade
--- NOTE | 2018-08-25 19:06 | PATHOLOGY ---
[facility] Accession Number: [id number] . 01 Material submitted: . breast - RIGHT BREAST MASS. Modifiers: right . 01 Clinical history: . Right breast mass . 02 Diagnosis: Breast tissue, right breast mass wire localized excision: - Complex of cysts showing extensive apocrine metaplasia. See comment. - Stromal fibrosis and mild duct ectasia, focal. (JPM:planogrammer; 08/25/2018) MBR/08/25/2018 . 02 Comment: The right breast mass consists of a complex of small cysts showing extensive apocrine metaplasia. There is no atypia or evidence of malignancy. The remaining breast is predominantly fatty and shows focal stromal fibrosis and mild duct ectasia. (JPM:planogrammer; 08/25/2018) . 02 Electronically signed: . Serafin Mendenhall MD, Pathologist NPI- [id number] . 01 Gross description: . The specimen is received in formalin, labeled "Dianne Moore, right breast mass" and consists of an unoriented 18 g lumpectomy specimen measuring 6.0 x 4.5 x 0.7 cm with a mass at the 8/E-G level. A localization wire is protruding from one aspect and there is blue dye adjacent to the 8/E-G level. This area is inked green and the remainder of the specimen black. Sectioning reveals a white-godinez nodule measuring 0.4 x 0.4 cm which correlates to the green inked level 8/E-G. The mass extends 0.1 cm from the nearest black inked margin. The rest of the parenchyma consists of yellow lobulated cut surfaces with focal hemorrhage and extensive previous blue dye. No additional masses or lesions are identified. The specimen was obtained at 11 AM on 08/23/2018 and placed in formalin at 11:16 AM. The cold ischemic time is 16 minutes and the total formalin fixation time is greater than 6 hours but less than 72 hours. . A1: Slice with mass A2-A3: Slices adjacent mass A4-A7: Random veterans service representative slices (SDY; 08/24/2018) SYU/SYU . 02 Pathologist provided ICD-10: N60.01, N60.81, N60.31, N60.41 . 02 CPT . 439434 Specimen Comment: A courtesy copy of this report has been sent to Specimen Comment: [phone], . Specimen Comment: Report sent to / DR GOLDMAN Performed at: 01 [facility] [address], [place] [id number] MD Ron Davis MD Phone: [phone] Performed at: 02 [facility] [address], [place] [id number] MD Serafin Mendenhall MD Phone: [phone]
== END 2018-08-23 13:08 | disposition home or self-care (01) ==
LOC: SURG 07:36
PROVIDERS: ATTEND Specialist
DX: N60.31 Fibrosclerosis of right breast (principal); E11.9 Type 2 diabetes mellitus without complications; Z88.0 Allergy status to penicillin
CPT/HCPCS: 19125; 36415; 76098; 76942; 77065; 80053; 85025; 85610; 94640; A7015; J1100; J2001; J2405; J2704; J3010; J3490; Q9968

== ENCOUNTER 2019-03-12 16:42 | Emergency (ER) | payer BC ==
[~2019-03-12] VITALS: Ht 162.6 cm; Wt 111.4 kg
[~2019-03-12 16:42] MED LIST changes: +ALBU2.5V8 INH; -CLINDAMYCIN 900MG PREMIX 50 ML IV PRN; -IV RINGERS,LACTATED 1000ML 1,000 ML IV SCH; -ONDANSETRON PF 4 MG/2 ML VIAL. IV PRN; +OXYC1TAB15 PO; -PROCHLORPERAZINE 10 MG/2 ML VIAL. IV PRN; -fentaNYL PF VIAL 100 MCG/2 ML VIAL IV PRN
[2019-03-12 17:49] VITALS: BP 163/88
[2019-03-12] MEDS ORDERED: CYCL10TA2 PO (18:34)
[2019-03-12] MEDS ORDERED: NAPR-514 PO (18:34)
[2019-03-12] MEDS ORDERED: METH4TAB2 PO (18:34)
[2019-03-12] MEDS ORDERED: HYDR-3164 PO (18:34)
--- NOTE | 2019-03-12 18:35 | PHYS DOC ---
Past Medical History Past Medical History: Arthritis, Diabetes-Type II, Fibromyalgia, Hypertension, Other Additional Past Medical Histor: CHRONIC KNEE PAIN Past Surgical History: Appendectomy, Tonsillectomy Alcohol Use: None Drug Use: None Adult General Chief Complaint Chief Complaint: [facility] HPI Patient is a 53 year old female with history of fibromyalgia, diabetes2, high cholesterol, arthritis who presents to the ED today complaining of mild to moderate intermittent left arm pain worse on palpating her shoulderand range of motion that began on Tuesday. Patient denies any injury. Patient states she has occasional tingling sensation as well as numbness to the left upper extremity, patient also reports the pain is worse when she lays on the left arm. denies any chest pain or shortness of breath. She states the pain is relieved slightly and immobilization. Reports she has tried [id number] remedies with no relief. Review of Systems Review of Systems Constitutional: Denies fever or chills [] Eyes: Denies change in visual acuity, redness, or eye pain [] HENT: Denies nasal congestion or sore throat [] Respiratory: Denies cough or shortness of breath [] Cardiovascular: No additional information not addressed in HPI [] GI: Denies abdominal pain, nausea, vomiting, bloody stools or diarrhea [] : Denies dysuria or hematuria [] Musculoskeletal: reports left shoulder pain Integument: Denies rash or skin lesions [] Neurologic: Denies headache, focal weakness or sensory changes [] All other systems were reviewed and found to be within normal limits, except as documented in this note. Allergies Allergies Allergies Coded Allergies Type Severity Reaction Last Updated Verified Penicillins Allergy Intermediate UNKNOWN,WAS A BABY 08/23/18 Yes codeine Allergy Intermediate swelling 08/23/18 Yes triamcinolone Allergy Mild BLOOD PRESSURE WENT HIGH 08/23/18 Yes Physical Exam Physical Exam Constitutional: Well developed, well nourished, no acute distress, non-toxic appearance. [] HENT: Normocephalic, atraumatic, bilateral external ears normal, oropharynx moist, no oral exudates, nose normal. [] Eyes: PERRLA, EOMI, conjunctiva normal, no discharge. [] Neck: Normal range of motion, no tenderness, supple, no stridor. [] Cardiovascular:Heart rate regular rhythm, no murmur [] Lungs & Thorax: Bilateral breath sounds clear to auscultation [] Abdomen: Bowel sounds normal, soft, no tenderness, no masses, no pulsatile masses. [] Skin: Warm, dry, no erythema, no rash. [] Back: No tenderness, no CVA tenderness. [] Extremities: diffuse tenderness throughout the left upper extremity, no cyanosis, no clubbing, ROM intact, no edema. Reproducible pain to the left sh oulder on range of motion. Neurologic: Alert and oriented X 3, normal motor function, normal sensory functi on, no focal deficits noted. [] Psychologic: Affect normal, judgement normal, mood normal. [] Current Patient Data Vital Signs Vital Signs Date Time Temp Pulse Resp B/P (MAP) Pulse Ox O2 Delivery O2 Flow Rate FiO2 03/12/19 17:49 98.1 80 16 163/88 (113) 98 Room Air 98.1 EKG EKG [] Radiology/Procedures Radiology/Procedures [] Course & Med Decision Making Course & Med Decision Making Pertinent Labs and Imaging studies reviewed. (See chart for details) This is a 53-year-old female patient presenting to the ED today with left shoulder/upper extremity pain since Tuesday. No known injury. Pain is very musculoskeletal, elicited in the ED with range of motion. D/c to home. F/u with PCP next week. Dragon Disclaimer Dragon Disclaimer This electronic medical record was generated, in whole or in part, using a voice recognition dictation system. Departure Departure Impression: Primary Impression: Radicular pain in left arm Disposition: HOME, SELF-CARE Condition: STABLE Referrals: JONES RAYMOND MD (PCP) follow up next week Patient Instructions: Radicular Pain Additional Instructions: You were evaluated in the emergency room with pain suspicious of radiculopathy. Take the prescribed medications as ordered. Follow-up with your own doctor in 1- 2 weeks. Scripts Cyclobenzaprine Hcl (CYCLOBENZAPRINE HCL) 10 Mg Tablet 1 TAB PO TID, #30 TAB Prov: MUTUNGAATIYA MONORAIL OPERATOR 03/12/19 Naproxen (NAPROXEN) 500 Mg Tablet 1 TAB PO BID for pain for 30 Days, #20 TAB 0 Refills Prov: MUTUNGAATIYA MONORAIL OPERATOR 03/12/19 Methylprednisolone (MEDROL) 4 Mg Tab.ds.pk 1 PKG PO UD, #1 PKG Prov: ATIYA LIANG APRN 03/12/19 Hydrocodone/Apap 5-325 (NORCO 5-325 TABLET) 1 Each Tablet 1 TAB PO Q6HRS, #12 TAB Prov: ATIYA LIANG APRN 03/12/19 ATIYA LIANG APRN Mar 12, 2019 18:35
== END 2019-03-12 18:45 | disposition home or self-care (01) ==
LOC: ER 16:42
DX: M25.512 Pain in left shoulder (principal); M19.90 Unspecified osteoarthritis, unspecified site; E11.9 Type 2 diabetes mellitus without complications; M79.7 Fibromyalgia; I10 Essential (primary) hypertension; G89.29 Other chronic pain; Z90.89 Acquired absence of other organs; Z88.0 Allergy status to penicillin; Z88.5 Allergy status to narcotic agent; Z88.1 Allergy status to other antibiotic agents
CPT/HCPCS: 99283

== ENCOUNTER → 2019-07-19 | Outpatient (CLI) | payer BC ==
[~2019-07-19] MED LIST changes: +CYCL10TA2 PO; +HYDR-3164 PO; +METH4TAB2 PO
--- NOTE | 2019-07-19 10:37 | RAD ---
Examination: Bilateral digital diagnostic mammogram. INDICATION: 54-year-old woman approximately due for mammographic screening presenting with focal right breast pain, status post surgical biopsy of a benign nodule (fibrocystic changes) in the upper outer right breast. COMPARISON: Bilateral mammograms of 06/30/2017, 07/25/2018 and right diagnostic mammogram of 07/26/2018. Right post wire localization mammogram of 08/23/2018. TECHNIQUE: CC and MLO views of both breasts with 2-D and 3-D technique were obtained and reviewed with computer-aided detection. FINDINGS: The breasts are almost entirely fatty replaced. There is no developing mass, suspicious microcalcifications or unexplained architectural distortion. The nodular asymmetry in the upper outer breast recalled from screening has since been surgically excised and a benign surgical scar replaces its in the upper outer quadrant right breast. Stable inferior posterior excisional biopsy scar also noted in the right breast. The left mammogram is negative. IMPRESSION: Benign findings on bilateral digital diagnostic mammogram. No evidence of malignancy. Recommend clinical management of focal right breast pain. Given her fatty breast parenchyma, additional imaging by ultrasound is not indicated in the absence of a palpable abnormality. Recommend clinical follow-up and screening mammogram in one year in the absence of any clinically suspicious findings which should be biopsied if resident in the opinion of the patient's referring physician. BI-RADS Category 2: Benign. Benign findings. Recommend screening in one year. BI-RADS 2 -- benign findings
== END | disposition home or self-care (01) ==
LOC: MAMMO 09:16
PROVIDERS: ATTEND Internal Medicine
DX: R92.8 Other abnormal and inconclusive findings on diagnostic imaging of breast (principal); N64.4 Mastodynia
CPT/HCPCS: 77066; G0279; 77062

== ENCOUNTER 2019-09-26 18:59 | Observation (INO) | payer BC ==
[~2019-09-26] VITALS: Ht 162.6 cm; Wt 114.2 kg
--- NOTE | 2019-09-26 19:04 | PHYS DOC ---
Past Medical History Past Medical History: Arthritis, Diabetes-Type II, Fibromyalgia, Hypertension, Other Additional Past Medical Histor: CHRONIC KNEE PAIN Past Surgical History: Appendectomy, Tonsillectomy Smoking Status: Never Smoker Alcohol Use: None Drug Use: None General Adult EDM: Chief Complaint: chest pain HPI: HPI: Patient is a 54 year old female who presents via EMS for evaluation of sharp severe right-sided chest pain. Onset of symptoms while she was walking around her house. Patient is never had pain like this before. Risk factors include hypertension. Patient was in moderate to severe distress on arrival. Full dose aspirin taken prior to arrival by EMS. Patient denies shortness of air but did have some mild dizziness and sweats. Review of Systems: Review of Systems: Constitutional: Denies fever or chills. [] Eyes: Denies change in visual acuity. [] HENT: Denies nasal congestion or sore throat. [] Respiratory: Denies cough or shortness of breath. [] Cardiovascular: has chest pain no edema. [] GI: Denies abdominal pain, nausea, vomiting, bloody stools or diarrhea. [] : Denies dysuria. [] Musculoskeletal: Denies back pain or joint pain. [] Integument: Denies rash. [] Neurologic: Denies headache, focal weakness or sensory changes. [] Endocrine: Denies polyuria or polydipsia. [] Lymphatic: Denies swollen glands. [] Psychiatric: Denies depression or anxiety. [] Heart Score: HEART Score for Chest Pain: HEART Score for Chest Pain Response (Comments) Value History Moderately Suspicious 1 ECG Normal 0 Age >45 - < 65 1 Risk Factors 1 or 2 Risk Factors 1 Troponin < Normal Limit 0 Total 3 Risk Factors: Risk Factors: DM, Current or recent (<one month) smoker, HTN, HLP, family history of CAD, obesity. Risk Scores: Score 0 - 3: 2.5% MACE over next 6 weeks - Discharge Home Score 4 - 6: 20.3% MACE over next 6 weeks - Admit for Clinical Observation Score 7 - 10: 72.7% MACE over next 6 weeks - Early Invasive Strategies Allergies: Allergies: Allergies Coded Allergies Type Severity Reaction Last Updated Verified Penicillins Allergy Intermediate UNKNOWN,WAS A BABY 08/23/18 Yes codeine Allergy Intermediate swelling 08/23/18 Yes triamcinolone Allergy Mild BLOOD PRESSURE WENT HIGH 08/23/18 Yes Physical Exam: PE: Constitutional: Well developed, well nourished, moderate distress [] HENT: Normocephalic, atraumatic, bilateral external ears normal, oropharynx moist, no oral exudates, nose normal. [] Eyes: PERRL, EOMI, conjunctiva normal, no discharge. [] Neck: Normal range of motion, no tenderness, supple, no stridor. [] Cardiovascular:Heart rate regular rhythm, no murmur [] Lungs & Thorax: Bilateral breath sounds clear to auscultation [] Abdomen: Bowel sounds normal, soft, no tenderness, no masses. [] Skin: Warm, dry, no erythema, no rash. [] Back: No tenderness. [] Extremities: No tenderness, no cyanosis, no clubbing, ROM intact, no edema. [] Neurologic: Alert and oriented X 3, normal motor function, normal sensory function, no focal deficits noted. [] Psychologic: Affect normal, judgement normal, mood normal. [] Current Patient Data: Labs: Laboratory Tests Test 09/26/19 19:15 White Blood Count 11.1 x10^3/uL Red Blood Count 4.57 x10^6/uL Hemoglobin 13.3 g/dL Hematocrit 38.3 % Mean Corpuscular Volume 84 fL Mean Corpuscular Hemoglobin 29 pg Mean Corpuscular Hemoglobin Concent 35 g/dL Red Cell Distribution Width 14.1 % Platelet Count 294 x10^3/uL Neutrophils (%) (Auto) 59 % Lymphocytes (%) (Auto) 29 % Monocytes (%) (Auto) 8 % Eosinophils (%) (Auto) 3 % Basophils (%) (Auto) 2 % Neutrophils # (Auto) 6.5 x10^3/uL Lymphocytes # (Auto) 3.2 x10^3/uL Monocytes # (Auto) 0.9 x10^3/uL Eosinophils # (Auto) 0.4 x10^3/uL Basophils # (Auto) 0.2 x10^3/uL D-Dimer (Franny) 0.46 ug/mlFEU Sodium Level 141 mmol/L Potassium Level 3.9 mmol/L Chloride Level 103 mmol/L Carbon Dioxide Level 29 mmol/L Anion Gap 9 Blood Urea Nitrogen 11 mg/dL Creatinine 1.0 mg/dL Estimated GFR (Cockcroft-Gault) 69.9 BUN/Creatinine Ratio 11 Glucose Level 101 mg/dL Calcium Level 8.9 mg/dL Total Bilirubin 0.2 mg/dL Aspartate Amino Transf (AST/SGOT) 20 U/L Alanine Aminotransferase (ALT/SGPT) 33 U/L Alkaline Phosphatase 96 U/L Troponin I Quantitative < 0.017 ng/mL Total Protein 7.1 g/dL Albumin 3.9 g/dL Albumin/Globulin Ratio 1.2 Lipase 173 U/L Current Medications Medications (Trade) Dose Ordered Sig/Bell Route PRN Reason Start Time Stop Time Status Last Admin Dose Admin Nitroglycerin (Nitrostat) 0.4 mg PRN Q5MIN PRN SL CP RATING > 1/10 09/26/19 19:15 09/27/19 19:14 09/26/19 19:50 Morphine Sulfate (Morphine Sulfate) 4 mg 1X ONCE IV 09/26/19 20:00 09/26/19 20:04 DC 09/26/19 20:18 Ondansetron HCl (Zofran) 4 mg 1X ONCE IVP 09/26/19 20:00 09/26/19 20:04 DC 09/26/19 20:17 Iohexol (Omnipaque 350 Mg/ml) 100 ml 1X ONCE IV 09/26/19 20:15 09/26/19 20:16 DC 09/26/19 20:38 Info (CONTRAST GIVEN -- Rx MONITORING) 1 each PRN DAILY PRN MC SEE COMMENTS 09/26/19 20:15 09/28/19 20:14 EKG: EKG: Read at 1900, normal sinus rhythm, rate 80, flattened T waves aVL, otherwise essentially normal EKG, not STEMI cannot exclude old anteroseptal myocardial injury [] Radiology/Procedures: Radiology/Procedures: [facility] [address] [place], [place] [id number] IMAGING REPORT Signed PATIENT: SLY SWEENEY RACCOUNT: [id number] : 1965 LOCATION: ER AGE: 54 SEX: F EXAM STATUS: REG ER ORD. PHYSICIAN: SHEREEN SCOTT DO REASON: chest pain PROCEDURE: PORTABLE CHEST 1V Exam: Chest one view INDICATION: Chest pain TECHNIQUE: Frontal view of the chest Comparisons: 07/07/2016 FINDINGS: The cardiomediastinal silhouette and pulmonary vessels are within normal limits. The lung and pleural spaces are clear. IMPRESSION: No acute cardiopulmonary process. Electronically signed by: Tim Lo MD (09/26/2019 7:38 PM) [id number] DICTATED and SIGNED BY: TIM LO MD DATE: 09/26/191937 [] Impression: [facility] [address] [place] [address] IMAGING REPORT Signed PATIENT: SLY SWEENEY RACCOUNT: [id number] : 1965 LOCATION: ER AGE: 54 SEX: F EXAM STATUS: REG ER ORD. PHYSICIAN: SHEREEN SCOTT DO REASON: chest pain PROCEDURE: CT ANGIOGRAPHY CHEST Exam: CT of chest with contrast INDICATION: Chest pain TECHNIQUE: Sequential axial images through the chest obtained following the administration 100 mL of Omni 350 IV contrast. Sagittal and coronal reformatted images were reconstructed from the axial data and reviewed. 3-D reformatted images were reconstructed from the axial data and reviewed. Comparisons: Chest x-ray same day FINDINGS: Visual is portions of the thyroid are unremarkable. No enlargement is not lymph nodes. Heart size is normal. No pericardial effusion. Thoracic aorta has a normal course and caliber. Pulmonary artery is not enlarged. No pulmonary embolus identified within the main, lobar or segmental pulmonary arteries. Airways are patent. No consolidation or pneumothorax. No suspicious lung nodules. No pleural effusion or thickening. Visualized upper abdomen is unremarkable. No suspicious osseous lesions or acute fractures. IMPRESSION: No pulmonary embolus identified within the main, lobar or segmental pulmonary arteries. Exposure: One or more of the following in the visualized dose reduction techniques were utilized for this examination: 1. Automated exposure control 2. Adjustment of the MA and/or KV according to patient size 3. Use of iterative of reconstructive technique Electronically signed by: Tim Lo MD (09/26/2019 9:01 PM) [id number] DICTATED and SIGNED BY: TIM LO MD DATE: 09/26/192100 Course & Med Decision Making: Course & Med Decision Making Pertinent Labs and Imaging studies reviewed. (See chart for details) [] Dragon Disclaimer: Dragon Disclaimer: This electronic medical record was generated, in whole or in part, using a voice recognition dictation system. 1954 stable, CT chest PE protocol ordered. I concerned about PE because patient had sudden onset 10 out of 10 right-sided chest pain. Patient has never had pain like this in the past. A work-up including EKG and troponin and chest x-ray unremarkable thus far 2118 Case was discussed with Dr. Garfield Candelario. Patient will admitted for overnight chest pain observation. Differential diagnosis included pneumonia, pneumothorax as well as pulmonary embolism and aortic dissection were excluded. Patient will have serial cardiac enzymes. Departure Departure Impression: Primary Impression: Precordial chest pain Additional Impressions: History of diabetes mellitus History of hypertension Disposition: ADMITTED INPATIENT Admitting Physician: Jones Candelario Condition: STABLE Referrals: JONES CANDELARIO MD (PCP) Justicifation of Admission Dx: Justifications for Admission: Justification of Admission Dx: Yes Angina: [facility] SHEREEN SCOTT DO Sep 26, 2019 19:04
[2019-09-26] MEDS: NITROGLYCERIN SUBLINGUAL 0.4 MG BOTTLE OF 25. SL PRN ×2 (19:20→19:50)
[2019-09-26 19:22] LABS: BASO # 0.2 x10^3/uL (0.0-0.2); BASO % 2 % (0-3); EOS # 0.4 x10^3/uL (0.0-0.7); EOS % 3 % (0-3); HEMATOCRIT 38.3 % (36.0-47.0); HEMOGLOBIN 13.3 g/dL (12.0-15.5); LYMPH # 3.2 x10^3/uL (1.0-4.8); LYMPH % 29 % (24-48); MEAN CORPUSCULAR HEMOGLOBIN 29 pg (25-35); MEAN CORPUSCULAR HGB CONC 35 g/dL (31-37); MEAN CORPUSCULAR VOLUME 84 fL (79-100); MONO # 0.9 x10^3/uL (0.0-1.1); MONO % 8 % (0-9); NEUT # 6.5 x10^3/uL (1.8-7.7); NEUT % 59 % (31-73); PLATELET COUNT 294 x10^3/uL (140-400); RED BLOOD COUNT 4.57 x10^6/uL (3.50-5.40); RED CELL DISTRIBUTION WIDTH 14.1 % (11.5-14.5); WHITE BLOOD COUNT 11.1 x10^3/uL (4.0-11.0)
[2019-09-26 19:29] LABS: CALCIUM 8.9 mg/dL (8.5-10.1); GFR 69.9; POTASSIUM 3.9 mmol/L (3.5-5.1)
[2019-09-26 19:35] LABS: ALBUMIN 3.9 g/dL (3.4-5.0); ALBUMIN/GLOBULIN RATIO 1.2 (1.0-1.7); TOTAL BILIRUBIN 0.2 mg/dL (0.2-1.0); TOTAL PROTEIN 7.1 g/dL (6.4-8.2)
--- NOTE | 2019-09-26 19:41 | RAD ---
Exam: Chest one view INDICATION: Chest pain TECHNIQUE: Frontal view of the chest Comparisons: 07/07/2016 FINDINGS: The cardiomediastinal silhouette and pulmonary vessels are within normal limits. The lung and pleural spaces are clear. IMPRESSION: No acute cardiopulmonary process. Electronically signed by: Tim Edwards MD (09/26/2019 7:38 PM) [id number]
[2019-09-26] MEDS ORDERED: MORPHINE SULFATE 4 MG/ML VIAL. IV ONE (20:00)
[2019-09-26] MEDS ORDERED: ONDANSETRON PF 4 MG/2 ML VIAL. IVP ONE (20:00)
[2019-09-26] MEDS ORDERED: IOHEXOL 350 MG/ML 100 ML VIAL. IV ONE (20:15)
[2019-09-26] MEDS ORDERED: CONTRAST GIVEN. MC PRN (20:15)
--- NOTE | 2019-09-26 21:04 | RAD ---
Exam: CT of chest with contrast INDICATION: Chest pain TECHNIQUE: Sequential axial images through the chest obtained following the administration 100 mL of Omni 350 IV contrast. Sagittal and coronal reformatted images were reconstructed from the axial data and reviewed. 3-D reformatted images were reconstructed from the axial data and reviewed. Comparisons: Chest x-ray same day FINDINGS: Visual is portions of the thyroid are unremarkable. No enlargement is not lymph nodes. Heart size is normal. No pericardial effusion. Thoracic aorta has a normal course and caliber. Pulmonary artery is not enlarged. No pulmonary embolus identified within the main, lobar or segmental pulmonary arteries. Airways are patent. No consolidation or pneumothorax. No suspicious lung nodules. No pleural effusion or thickening. Visualized upper abdomen is unremarkable. No suspicious osseous lesions or acute fractures. IMPRESSION: No pulmonary embolus identified within the main, lobar or segmental pulmonary arteries. Exposure: One or more of the following in the visualized dose reduction techniques were utilized for this examination: 1. Automated exposure control 2. Adjustment of the MA and/or KV according to patient size 3. Use of iterative of reconstructive technique Electronically signed by: Tim Edwards MD (09/26/2019 9:01 PM) [id number]
[2019-09-26] MEDS ORDERED: ONDANSETRON PF 4 MG/2 ML VIAL. IV PRN (21:30)
[2019-09-26] MEDS ORDERED: MORPHINE SULFATE 4 MG/ML VIAL. IV PRN (22:15)
[2019-09-26 23:00] VITALS: BP 145/97
[2019-09-27] MEDS ORDERED: ATOR10TA60 PO (00:45)
[2019-09-27] MEDS ORDERED: TIZA4TAB2 PO (00:45)
[2019-09-27] MEDS ORDERED: MONT10TA11 PO (00:45)
[2019-09-27 02:54] VITALS: BP 135/75
--- NOTE | 2019-09-27 06:18 | EKG ---
[facility] [address] [place] [address] Test Date: 2019-09-26 Test Time: 18:59:45 Pat Name: SLY SWEENEY Department: Room: Gender: F [employer]or: : 1965 Requested By: SHEREEN SCOTT Order Number: [id number] Reading MD: Measurements Intervals Barnum Rate: 80 P: 55 DC: 166 QRS: 64 QRSD: 72 T: 42 QT: 352 QTc: 409 Interpretive Statements SINUS RHYTHM QRS(T) CONTOUR ABNORMALITY CONSIDER ANTEROSEPTAL MYOCARDIAL DAMAGE POSSIBLY ABNORMAL ECG RI6.01 No previous ECG available for comparison
[2019-09-27 07:00] VITALS: BP 129/76
[2019-09-27] MEDS ORDERED: ENOXAPARIN 40 MG/0.4 ML SYRINGE. SQ SCH (10:00)
--- NOTE | 2019-09-27 10:28 | DISCH ---
DISCHARGE INSTRUCTIONS Condition on Discharge Condition on Discharge: Stable Activity After Discharge Activity Instructions for Disc: Activity as tolerated Diet after Discharge Diet after Discharge: Diabetic No Calorie Level (cardiac) Diet Texture: Regular Contacting the DRMoi after DC Call your doctor for: Concerns you may have Follow-Up Follow up with: Dr.Pratip Candelario in 5 days Treatment/Equipment after DC Adaptive Equipment Issued: Front wheeled JONES Lopez MD Sep 27, 2019 10:28
[2019-09-27] MEDS ORDERED: ACETAMINOPHEN 325 MG TABLET. PO PRN (10:30)
[2019-09-27 10:33] VITALS: BP 149/67
--- NOTE | 2019-09-27 10:50 | PDOC ---
Provider Note Provider Note H/P,Discharge summary [id number] Justicifation of Admission Dx: Justifications for Admission: Justification of Admission Dx: Yes Angina: [facility] JONES RAYMOND MD Sep 27, 2019 10:50
[2019-09-27] MEDS ORDERED: ATORVASTATIN CALCIUM 10 MG TABLET. PO SCH (11:00)
[2019-09-27] MEDS ORDERED: LOSARTAN POTASSIUM 50 MG TABLET. PO SCH (11:00)
[2019-09-27] MEDS ORDERED: MONTELUKAST SODIUM 10 MG TABLET. PO SCH (11:00)
[2019-09-27] MEDS ORDERED: hydroCHLOROthiazide 25 MG TABLET PO SCH (11:00)
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
--- NOTE | 2019-09-27 12:40 | NUR ---
SS following for discharge planning. SS reviewed pt chart and discussed with pt RN. Pt is from home and is currently on room air. Possible discharge to home today. SS will continue to follow for discharge planning.
[2019-09-27 14:37] VITALS: BP 143/73
--- NOTE | 2019-09-27 16:00 | NUR ---
Discharge Note: SLY SWEENEY Discharge instructions and discharge home medications reviewed with Patient and a copy given. All questions have been answered and understanding verbalized. The following instructions and handouts were given: chest pain Discontinued lines and drains: IV catheter removed intact. Tele monitor removed. Patient discharged to Home with Self care via wheelchair.
[2019-09-27] MEDS ORDERED: tiZANidine 4 MG TABLET. PO SCH (21:00)
== END 2019-09-27 15:55 | disposition home or self-care (01) ==
LOC: ER 18:59 → 2 NORTH 21:20
PROVIDERS: ADMIT Internal Medicine; ATTEND Internal Medicine
DX: R07.89 Other chest pain (principal); I10 Essential (primary) hypertension; E11.9 Type 2 diabetes mellitus without complications; E28.2 Polycystic ovarian syndrome; F41.9 Anxiety disorder, unspecified; K21.9 Gastro-esophageal reflux disease without esophagitis; J45.909 Unspecified asthma, uncomplicated; M06.9 Rheumatoid arthritis, unspecified; M19.90 Unspecified osteoarthritis, unspecified site; M25.569 Pain in unspecified knee; G89.29 Other chronic pain; E78.5 Hyperlipidemia, unspecified; Z90.49 Acquired absence of other specified parts of digestive tract; Z98.890 Other specified postprocedural states
CPT/HCPCS: 36415; 71045; 71275; 80053; 83690; 84484; 85025; 85379; 93005; 96372; 96374; 96375; 96376; 99285; G0378; J1650; J2270; J2405; Q9967; G0379

== ENCOUNTER → 2020-07-21 | Outpatient (CLI) | payer BC ==
[~2020-07-21] MED LIST changes: +ATOR10TA60 PO; +MONT10TA20 PO; +TIZA4TAB2 PO
--- NOTE | 2020-07-21 17:18 | RAD ---
DATE: July 21, 2020 EXAM: DIGITAL SCREEN BILAT W/CAD HISTORY: Screening study. COMPARISON: 2018 and 2019 This study was interpreted with the benefit of Computerized Aided Detection (CAD). FINDINGS: Breast Density: FATTY The breast parenchyma is primarily fatty replaced. Breast parenchyma level density A.. There are no dominant suspicious masses, suspicious microcalcifications or evidence of architectural distortion. The previously seen nodule in 2019 within the upper outer quadrant of the right breast has been surgically removed. History of benign biopsy. IMPRESSION: No mammographic indicators for malignancy. BI-RADS CATEGORY: 2 BENIGN FINDING RECOMMENDED FOLLOW-UP: 12M 12 MONTH FOLLOW-UP PQRS compliance statement: Patient information was entered into a reminder system with a target due date July 22, 2021 for the next mammogram. Mammography is a sensitive method for finding small breast cancers, but it does not detect them all and is not a substitute for careful clinical examination. A negative mammogram does not negate a clinically suspicious finding and should not result in delay in biopsying a clinically suspicious abnormality. "Our facility is accredited by the [employer] Mammography Program." The patient's breast density may affect the ability of mammography to detect breast cancer. There are 4 categories of breast density, A, B, C and D. Breast density A means that most of the breast tissue is replaced with adipose tissue and therefore is not dense. Breast density B means that the breast tissue is mildly dense and scattered. Breast density C means that the breast tissue is heterogeneously dense. Breast density D means that the breast tissue is very dense. Breast densities especially C and D may decrease the sensitivity of mammography to detect breast cancer. Therefore, the patient may benefit from 3-D breast mammography (3D breast tomography) as a part of their screening mammogram. Insurance may or may not pay for this additional imaging. The patient's breast density based on today's mammogram is category A.
== END ==
LOC: MAMMO 15:00
PROVIDERS: ATTEND Internal Medicine
DX: Z12.31 Encounter for screening mammogram for malignant neoplasm of breast (principal)
CPT/HCPCS: 77067

== ENCOUNTER → 2020-08-19 | Outpatient (CLI) | payer BC ==
--- NOTE | 2020-08-19 10:46 | RAD ---
STUDY: US DPLX VENOUS EXTREMITY LOWER LT INDICATION: Left lower extremity pain and swelling. DVT. TECHNIQUE: Color-flow and pulsed wave duplex ultrasound with compression of venous structures of the left lower extremity. COMPARISON: None recently. FINDINGS: Duplex ultrasound with compression of the deep venous structures of the left lower extremity from the common femoral vein through the popliteal vein is negative for DVT. The posterior tibial and peroneal veins are segmentally visualized and patent where seen. Normal veno us waveforms and augmentation are noted throughout. IMPRESSION: No deep venous thrombosis throughout the left lower extremity. Electronically signed by: QUINTON VALENTINO MD (08/19/2020 10:44 AM) ALBA
== END ==
LOC: US 10:15
PROVIDERS: ATTEND Internal Medicine
DX: R22.42 Localized swelling, mass and lump, left lower limb (principal)
CPT/HCPCS: 93971

== ENCOUNTER → 2021-04-27 | Outpatient (CLI) | payer BC ==
[~2021-04-27] MED LIST changes: +CYCL10TA19 PO; -CYCL10TA2 PO; +MONT-38 PO; -MONT10TA20 PO; +TIZA-75 PO; -TIZA4TAB2 PO
--- NOTE | 2021-04-27 15:21 | KCIC ---
EXAM: Right shoulder, 3 views; right elbow, 4 views. HISTORY: Pain. COMPARISON: None. FINDINGS: Right shoulder: 3 views of the right shoulder obtained. There is no fracture, dislocation or subluxat ion. There is mild acromial clavicular and glenohumeral joint spurring. There is mild degenerative paula bchondral sclerosis involving the greater tuberosity at the rotator cuff insertion. Right elbow: 4 views of the right elbow are obtained. There is no fracture, dislocation or subluxatio n. There is no joint effusion. IMPRESSION: 1. Mild right acromioclavicular and glenohumeral joint osteoarthritis. 2. No acute osseous finding. Electronically signed by: Nora Carter MD (04/27/2021 3:18 PM) [id number]
== END ==
LOC: KCIC 14:39
PROVIDERS: ATTEND Internal Medicine
DX: M19.011 Primary osteoarthritis, right shoulder (principal); M75.81 Other shoulder lesions, right shoulder; M25.521 Pain in right elbow
CPT/HCPCS: 73030; 73080

== ENCOUNTER → 2021-05-12 | Outpatient (CLI) | payer BC ==
--- NOTE | 2021-05-12 17:36 | KCIC ---
XR CERVICAL SPINE 2-3V History: Cervicalgia: Neck pain into right arm with weakness and numbness since January. Comparison: None. Technique: 4 views of the cervical spine. Findings: There are 7 non-rib bearing cervical vertebral segments. There is no evidence of fracture. No destructive osseous lesions are seen. Alignment is normal. No significant facet disease. Mild disc space narrowing C5-C6 and C6-C7. Circumferential osteophytes at these levels. Soft tissues are unremarkable. IMPRESSION: 1. Mild degenerative disc disease of the lower cervical spine. Recommend MRI if there is concern for radiculopathy. Electronically signed by: Rusty Salinas MD (05/12/2021 5:33 PM) [id number]
== END ==
LOC: KCIC 11:04
PROVIDERS: ATTEND Internal Medicine Rheumatology
DX: M50.30 Other cervical disc degeneration, unspecified cervical region (principal); M48.02 Spinal stenosis, cervical region
CPT/HCPCS: 72040

== ENCOUNTER → 2021-05-22 | Outpatient (CLI) | payer BC ==
--- NOTE | 2021-05-22 15:40 | KCIC ---
MR CERVICAL SPINE WO DATE: 05/22/2021 1:40 PM INDICATION: CERVICALGIA. RUE pain and numbness since January. NKI. Some neck pain. TECHNIQUE: Multiplanar multisequence magnetic resonance imaging of the cervical spine was performed w ithout administration of intravenous contrast using the standard cervical spine protocol. COMPARISON: None. FINDINGS: Reversal of the cervical lordosis centered at C5-6. No acute fracture. Mild multilevel degenerative disc desiccation and disc height loss. No marrow replacing process to suggest malignancy. The spinal cord is normal in signal intensity. On the limited views of the cranial cavity and brain, the cerebellum and joceline have normal morphology and signal characteristics. No Chiari malformation. No soft tissue abnormality. Normal signal voids are present in the vertebral arteries. C2-3: No significant spinal canal stenosis or neural foraminal narrowing. C3-4: No significant spinal canal stenosis or neural foraminal narrowing. C4-5: No significant spinal canal stenosis or neural foraminal narrowing. C5-6: Disc osteophyte complex. No significant spinal canal stenosis or neural foraminal narrowing. C6-7: Disc osteophyte complex. No significant spinal canal stenosis. Mild left neural foraminal narro wing. C7-T1: No significant spinal canal stenosis or neural foraminal narrowing. IMPRESSION: Mild cervical spondylosis. Electronically signed by: Vaibhav Roberto MD (05/22/2021 3:37 PM) [id number]
== END ==
LOC: KCIC MRI 12:58
PROVIDERS: ATTEND Internal Medicine Rheumatology
DX: M47.812 Spondylosis without myelopathy or radiculopathy, cervical region (principal); M50.30 Other cervical disc degeneration, unspecified cervical region; M25.78 Osteophyte, vertebrae
CPT/HCPCS: 72141